=== PATIENT | male | born 1970 | race Caucasian/White ===

== ENCOUNTER 2020-11-26 12:47 | Inpatient (IN) | payer OTHER ==
[~2020-11-26] VITALS: Ht 185.4 cm; Wt 127.0 kg
--- NOTE | 2020-11-26 13:05 | NUR ---
at bedside for assessment
--- NOTE | 2020-11-26 13:30 | NUR ---
Patient states chest pain in 09/03
[2020-11-26 13:32] LABS: BASOPHILS % (AUTO) 0.4 % (0.0-2.0); EOSINOPHILS # (AUTO) 0.3 K/uL (0.0-0.7); EOSINOPHILS % (AUTO) 3.6 % (0.0-7.0); HEMATOCRIT 49.8 % (36.7-47.1); HEMOGLOBIN 16.8 g/dL (12.5-16.3); LYMPHOCYTES # (AUTO) 1.4 K/uL (20.0-40.0); LYMPHOCYTES % (AUTO) 19.7 % (20.5-51.5); MEAN CORPUSCULAR HEMOGLOBIN 32.9 uug (23.8-33.4); MEAN CORPUSCULAR HGB CONC 34 g/dL (32.5-36.3); MEAN CORPUSCULAR VOLUME 97.4 fL (73.0-96.2); MONOCYTES # (AUTO) 0.7 K/uL (2.0-10.0); MONOCYTES % (AUTO) 10.2 % (0.0-11.0); NEUTROPHILS # (AUTO) 4.8 K/uL (1.8-8.9); NEUTROPHILS % (AUTO) 66.1 % (38.5-71.5); PLATELET COUNT (AUTO) 244 K/uL (152-348); RED BLOOD CELL COUNT(AUTO) 5.11 MIL/uL (4.06-5.63); WHITE BLOOD COUNT (AUTO) 7.3 K/uL (3.6-10.2)
[2020-11-26 13:40] LABS: CREATININE 0.9 mg/dL (0.6-1.3); POTASSIUM 4.1 mmol/L (3.5-5.1)
[2020-11-26] MEDS ORDERED: NITROGLYCERIN OINT 1 GM PACKET TP ONE ×2 (13:45→14:00)
[2020-11-26] MEDS ORDERED: ASPIRIN 325 MG TABLET PO ONE (13:45)
[2020-11-26 13:53] LABS: BILIRUBIN,DIRECT 0.2 mg/dL (0.0-0.2); BILIRUBIN,TOTAL 1.1 mg/dL (0.2-1.0); TOTAL PROTEIN, SERUM 8.4 g/dL (6.4-8.2)
[2020-11-26] MEDS ORDERED: ASPIRIN 325 MG TABLET ONE (14:01)
--- NOTE | 2020-11-26 16:00 | NUR ---
Report given to Gregoria ROSAS of Tele unit
[2020-11-26] MEDS ORDERED: NITROGLYCERIN 0.4 MG/TAB BOTTLE SL PRN (17:45)
[2020-11-26] MEDS ORDERED: ZOLPIDEM 5 MG TABLET PO PRN (17:45)
[2020-11-26] MEDS ORDERED: ONDANSETRON 4 MG/2 ML VIAL IV PRN (17:45)
[2020-11-26] MEDS ORDERED: MORPHINE SULFATE 2 MG/1 ML DISP.SYRIN IV PRN (17:45)
[2020-11-26] MEDS ORDERED: MAGNESIUM HYDROXIDE 30 ML LIQUID UDC PO PRN (17:45)
[2020-11-26] MEDS ORDERED: HYDROCODONE/APAP 5-325MG TABLET PO PRN (17:45)
[2020-11-26] MEDS ORDERED: ACETAMINOPHEN 325 MG TABLET PO PRN (17:45)
--- NOTE | 2020-11-26 17:51 | NUR ---
Pt. admitted to Tele , under care of SENIOR STAFF [employer] EMPLOY[employer] Barry Belongs List completed and all belongs taken with patient
--- NOTE | 2020-11-26 18:28 | NUR ---
Received patient from ED via wheelchair. Admitted to Telemetry. No signs of distress. No complaint of pain. Belongings list done. Oriented to unit and room. Bed locked and in low position. Call light within reach. Will continue to monitor.
--- NOTE | 2020-11-26 19:15 | NUR ---
RECEIVED PT IN NO ACUTE DISTRESS. PT IN NO ACUTE DISTRESS. SAFETY AND COMFORT PROVIDED. PT REFUSED TO HAVE AN IV ACCESS. EDUCATE THE PATIENT OF HAVING IV ACCESS. PT STILL REFUSED. PT STATED, "I WANT TO MINIMIZE ANY HOLES." WILL CONTINUE TO MONITOR.
--- NOTE | 2020-11-26 20:07 | NUR ---
NOTIFY BRAKE LINING DRILLER REGARDING PT REFUSING TO HAVE IV ACCESS. PT IN NO ACUTE DISTRESS. WILL CONTINUE TO MONITOR.
[2020-11-26 20:29] VITALS: BP 140/100
[2020-11-26] MEDS ORDERED: CLONIDINE HCL 0.1 MG TABLET PO PRN (22:30)
[2020-11-27 01:05] VITALS: BP 138/87
[2020-11-27 05:40] VITALS: BP 128/89
--- NOTE | 2020-11-27 06:19 | NUR ---
PT IN NO ACUTE DISTRESS. PT ON SINUS RHYTHM WITH BUNDLE BRANCH BLOCK AT 75. PT REFUSED TO HAVE AN IV ACCESS. PT VITAL SIGNS WNL. SAFETY AND COMFORT PROVIDED. WILL CONTINUE TO ENDORSE TO INCOMING NURSE FOR CONTINUITY OF CARE.
[2020-11-27 06:43] LABS: BASOPHILS % (AUTO) 0.7 % (0.0-2.0); EOSINOPHILS # (AUTO) 0.3 K/uL (0.0-0.7); EOSINOPHILS % (AUTO) 4.6 % (0.0-7.0); LYMPHOCYTES # (AUTO) 1.9 K/uL (20.0-40.0); MEAN CORPUSCULAR HEMOGLOBIN 33.7 uug (23.8-33.4); MEAN CORPUSCULAR HGB CONC 35 g/dL (32.5-36.3); MEAN CORPUSCULAR VOLUME 97.5 fL (73.0-96.2); MONOCYTES # (AUTO) 0.8 K/uL (2.0-10.0); MONOCYTES % (AUTO) 11.8 % (0.0-11.0); NEUTROPHILS # (AUTO) 3.5 K/uL (1.8-8.9); NEUTROPHILS % (AUTO) 53.9 % (38.5-71.5); PLATELET COUNT (AUTO) 201 K/uL (152-348); RED BLOOD CELL COUNT(AUTO) 4.46 MIL/uL (4.06-5.63); WHITE BLOOD COUNT (AUTO) 6.5 K/uL (3.6-10.2)
[2020-11-27 07:09] LABS: CREATININE 0.9 mg/dL (0.6-1.3); MAGNESIUM 2.2 mg/dL (1.8-2.4); PHOSPHOROUS 3.1 mg/dL (2.5-4.9); POTASSIUM 3.8 mmol/L (3.5-5.1); TOTAL PROTEIN, SERUM 7.3 g/dL (6.4-8.2)
[2020-11-27 07:15] LABS: HEMATOCRIT 43.5 % (36.7-47.1)
[2020-11-27] MEDS ORDERED: ASPIRIN 81 MG TAB.CHEW PO SCH (09:00)
--- NOTE | 2020-11-27 09:00 | NUR ---
PATIENT WAS SEEN AND EXAMINED BY TYRON AND THE PLAN IS THAT PATIENT COULD BE DISCHARGED TODAY PENDING ECHO ORDERED
[2020-11-27 11:33] VITALS: BP 158/99
--- NOTE | 2020-11-27 12:00 | NUR ---
DR ARCOS HERE AND SEEN PATIENT AND STATED THAT PATIENT NEEDS CTA CHEST TODAY CALLED PIOTR SPOKE WITH HIM STATED WANTS THE PATIENT SOON POSSIBLE PATIENT AWARE.
--- NOTE | 2020-11-27 12:45 | NUR ---
CALL RECEIVED FROM LUIS MANUEL STATED THAT WE SHOULD SEND THE PATIENT SOON [facility] CALLED TWO AMBULANCES AND THE SOONEST IS AT 1400 NOTIFIED LUIS MANUEL AND ALSO DR ARCOS AWARE STATED PATIENT DID NOT NEED [facility].CONSCENT OBTAINED AND DOCUMENTED.
--- NOTE | 2020-11-27 13:20 | NUR ---
PATIENT HAS NO IV SITE INSERTED GAUGE 18 TO HIS RIGHT ANTECUBITAL WITH ONE ATTEMPT AND SECURED PATIENT IS BEING PREPPED FOR CTA CHEST ORDERED.
--- NOTE | 2020-11-27 13:45 | NUR ---
PATIENT PICKED UP BY [facility] FOR CT HEART ORDERED IN SATISFACTORY CONDITION.
--- NOTE | 2020-11-27 15:36 | NUR ---
PATIENT RETURNED BACK TO HIS ROOM WITH NO RESULTS AT THIS TIME.
[2020-11-27 16:00] VITALS: BP 139/99
--- NOTE | 2020-11-27 16:15 | NUR ---
PATIENT DISCHARGED PICKED UP BY HER SON IN LAW EMILIO IN SATISFACTORY CONDITION WITH ALL HER DISCHARGE INSTRUCTIONS AND PERSONAL BELONGINGS AND PATIENT INSTRUCTED TO CALL HER PRIMARY DOCTOR AND SALES DEVELOPMENT EXECUTIVE FOR A FOLLOW UP APPOINTMENT WITHIN THE NEXT ONE WEEK AND SHE [id number] UNDERSTANDING. Addendum: 11/27/20 at 1734 by KAROLINE ANNE RN ERROR WRONG PATIENT
--- NOTE | 2020-11-27 17:00 | NUR ---
CALL RECEIVED FROM TYRON STATED THAT PATIENT WILL BE DISCHARGED TODAY STATED THAT HE SPOKE WITH DR BAILEY AND THAT PATIENT IS GOOD TO GO STATED HE WILL WORK ON HIS DISCHARGE SOON POSSIBLE
--- NOTE | 2020-11-27 18:00 | NUR ---
DR ARCOS HERE AND SAW PATIENT AND EXPLAINED TO HIM HIS CTA CHEST AND CLEARED PATIENT FOR DISCHARGE.
--- NOTE | 2020-11-27 18:30 | NUR ---
PATIENT DISCHARGED PICKED UP BY HIS PREETI IN SATISFACTORY CONDITION WITH DISCHARGE INSTRUCTIONS AND ALL THE PERSONAL BELONGINGS ABDOULAYEANN REMOVED CD OF ALL HIS TESTS GIVEN NOT IN DISTRESS AT THIS TIME.
== END 2020-11-27 18:30 | disposition home or self-care (01) | DRG 206 ==
LOC: ER 12:47 → TELE3 17:29
PROVIDERS: ADMIT Nurse Practitioner Acute Care; ATTEND Nurse Practitioner Acute Care
DX: M94.0 Chondrocostal junction syndrome [Tietze] (principal); D68.69 Other thrombophilia; E66.9 Obesity, unspecified; Z68.36 Body mass index [BMI] 36.0-36.9, adult; Z74.09 Other reduced mobility; R73.9 Hyperglycemia, unspecified; Z20.822 Contact with and (suspected) exposure to COVID-19; I45.10 Unspecified right bundle-branch block; Z87.891 Personal history of nicotine dependence
CPT/HCPCS: 36415; 70030-TC; 71045; 83735; 84100; 85025; 93005; 93307; A4663; G0378

== ENCOUNTER 2022-12-23 08:51 | Inpatient (IN) | payer OTHER ==
[~2022-12-23] VITALS: Ht 167.6 cm; Wt 104.3 kg
[2022-12-23] MEDS ORDERED: AZITHROMYCIN IV 500 MG in IV DEXTROSE 5% 250 ML IV ONE (09:00)
[2022-12-23] MEDS ORDERED: CEFTRIAXONE 1 G in IV DEXTROSE 5% 50 ML IV ONE (09:00)
[2022-12-23] MEDS ORDERED: CEFTRIAXONE /D5W 50ML IVPB **ER PYXIS IV ONE (09:54)
[2022-12-23] MEDS ORDERED: AZITHROMYCIN 500MG/ D5W 250ML IVPB **ER PYXIS ONLY IV ONE (09:57)
[2022-12-23 10:01] LABS: HEMATOCRIT 41.2 % (36.7-47.1); MEAN CORPUSCULAR HEMOGLOBIN 29.6 uug (23.8-33.4); MEAN CORPUSCULAR VOLUME 90.7 fL (73.0-96.2); PLATELET COUNT (AUTO) 431 K/uL (152-348)
[2022-12-23 10:14] LABS: CARBON DIOXIDE 29 mmol/L (21-32); CHLORIDE 98 mmol/L (98-107); CREATININE 0.8 mg/dL (0.6-1.3); GLUCOSE 121 mg/dL (74-106); POTASSIUM 3.8 mmol/L (3.5-5.1); UREA NITROGEN, BLOOD 10 mg/dL (7-18)
[2022-12-23 10:26] LABS: ALANINE AMINOTRANSFERASE 70 U/L (16-63); ALKALINE PHOSPHATASE 72 U/L (50-136); ASPARTATE AMINOTRANSFERASE 44 U/L (15-37); BILIRUBIN,DIRECT 0.2 mg/dL (0.0-0.2); BILIRUBIN,TOTAL 0.5 mg/dL (0.2-1.0); TOTAL PROTEIN, SERUM 8.4 g/dL (6.4-8.2)
[2022-12-23] MEDS ORDERED: ACETAMINOPHEN 325 MG TABLET ONE (11:08)
--- NOTE | 2022-12-23 11:13 | NUR ---
Pt c/o -12/02 MD NATE informed. Administered tylenol as ordered.
[2022-12-23] MEDS ORDERED: ACETAMINOPHEN 325 MG TABLET PO ONE (11:15)
[2022-12-23 11:47] LABS: ABG BASE EXCESS 4.1 mmol/L; ABG HCO3 27.9 mmol/L; ABG PCO2 38.9 mmHg (35.0-45.0); ABG PH 7.473 (7.350-7.450); ABG PO2 82.3 mmHg (75.0-100.0); ABG SITE RIGHT BRACHIAL; ABG TOTAL HEMOGLOBIN 13.9 G/dL (13.5-18.0); COHb 1.4 % (0.5-1.5); MetHb 0.2 % (0.0-1.5); VENT MODE Nasal Cannula
--- NOTE | 2022-12-23 12:05 | NUR ---
Pt breathing easier, no distress noted.
--- NOTE | 2022-12-23 13:05 | NUR ---
Gave report to nurseBean.
--- NOTE | 2022-12-23 13:15 | NUR ---
RECEIVED PATIENT FROM ED TO ROOM 304 WITH DX OF PNEUMONIA UNDER TELEMETRY PLACED INTO BED MADE COMFORTABLE PATIENT IA ALERT AND ORIENTED ON O2 AT 5L/M WITH SAT AT 947 PERCENT.PATIENT ORIENTED TO ROOM AND FACILITY PROTOCOL IS PRESENT IN THE ROOM SENT A MESSAGE TO DR SARAH SOMERS PATIENT IS HERE WITH DIET ORDER AND NOTED.
[2022-12-23 14:00] VITALS: BP 139/80
[2022-12-23] MEDS ORDERED: MAGNESIUM HYDROXIDE 30 ML LIQUID UDC PO PRN (17:00)
[2022-12-23] MEDS ORDERED: ALBUTEROL SULFATE 2.5 MG/ 0.5 ML NEBU NEB PRN (17:00)
[2022-12-23] MEDS ORDERED: ONDANSETRON 4 MG/2 ML VIAL IV PRN (17:00)
[2022-12-23] MEDS ORDERED: CEFTRIAXONE 1 G in IV DEXTROSE 5% 50 ML IV SCH (17:00)
[2022-12-23] MEDS ORDERED: MORPHINE SULFATE 2 MG/1 ML DISP.SYRIN IV PRN (17:00)
[2022-12-23] MEDS ORDERED: GUAIFENESIN/CODEINE 5 ML LIQUID UDC PO PRN (17:00)
--- NOTE | 2022-12-23 17:43 | NUR ---
SITTING UP ON THE CHAIR WITH O2 NOTED SOME DRY COUGHING OFFERED COUGH MEDICATION AND HE STATED THAT HE DID NOT NEED IT NOW.WILL CONTINUE TO OBSERVE.
--- NOTE | 2022-12-23 19:30 | NUR ---
Received patient lying in bed. at bedside. AAOx4. In no acute distress. Denies any pain. Some SOB but tolerable. On O2 at 5LPM via NC in place. O2 sat at 94% at this time. IV site on right intact and patent. SR with BBB on tele with HR of 93/min. Needs assessed and attended to. Safety measure initiated and call light within reached. Addendum: 12/23/22 at 2039 by ALDO MORIN RN IV site on right AC intact and patent.
[2022-12-23] MEDS: ENOXAPARIN SODIUM 40 MG/0.4 ML DISP.SYRIN SQ SCH (20:14)
[2022-12-23 20:19] VITALS: BP 127/83
[2022-12-24 00:05] VITALS: BP 133/84
[2022-12-24 04:36] VITALS: BP 133/86
--- NOTE | 2022-12-24 05:41 | NUR ---
Slept well during the night. No complain of pain or SOB. On O2 at 5LPM via NC in place. SR with BBB on tele with HR of 89/min. Needs attended to and met. Safety measure maintained and call light within reached.
[2022-12-24] MEDS: PANTOPRAZOLE SODIUM 40 MG TABLET.DR PO SCH (06:03)
--- NOTE | 2022-12-24 07:30 | NUR ---
RECEIVED PATIENT IN BED AWAKE ALERT AND ORIENTED REMAIN ON O2 AT 5L/M BY NASAL CANULA WITH SOME SOBE BUT SATS AT 94 PERCENT OCCASSIONAL DRY COUGH DENIES DISCOMFORTS CALL LIGHTS AND PERSONAL BELONGINGS ARE WITHIN EASY REACH AT THIS TIME WILL CONTINUE TO OBSERVE.
[2022-12-24 07:47] LABS: HEMATOCRIT 38.9 % (36.7-47.1); MEAN CORPUSCULAR HEMOGLOBIN 29.6 uug (23.8-33.4); PLATELET COUNT (AUTO) 386 K/uL (152-348)
[2022-12-24 08:16] LABS: BILIRUBIN,TOTAL 0.3 mg/dL (0.2-1.0); CREATININE 0.7 mg/dL (0.6-1.3); PHOSPHOROUS 4.3 mg/dL (2.5-4.9); POTASSIUM 4.6 mmol/L (3.5-5.1); TOTAL PROTEIN, SERUM 7.7 g/dL (6.4-8.2)
[2022-12-24] MEDS: CEFTRIAXONE 2 G in IV DEXTROSE 5% 100 ML IV SCH (08:44)
[2022-12-24 09:38] LABS: THYROID STIMULATING HORMONE 0.632 mIU/mL (0.358-3.740)
--- NOTE | 2022-12-24 10:11 | NUR ---
MID LINE INSERTED TO HIS LEFT UPPER ARM GAUGE 18 AND ATB CONTINUED ORDERED.
[2022-12-24] MEDS: methylPREDNISolone SOD SUCC 125 MG/2 ML VIAL IV SCH ×3 (10:13→21:00)
[2022-12-24] MEDS: AZITHROMYCIN IV 500 MG in IV DEXTROSE 5% 250 ML IV SCH (10:13)
--- NOTE | 2022-12-24 11:00 | NUR ---
PATIENT SEEN BY SHAUNA ROMERO NP AND DR AHAS WITH NEW ORDERS AND NOTED.
[2022-12-24] MEDS: IPRATROPIUM BROMIDE 0.5 MG/2.5 ML NEBU NEB SCH ×3 (11:03→19:42)
[2022-12-24] MEDS: ALBUTEROL SULFATE 2.5 MG/3 ML NEBU NEB SCH ×3 (11:03→19:42)
--- NOTE | 2022-12-24 11:57 | NUR ---
MRSA AND RESPIRATORY ANTIGEN SWABS OBTAINED ORDERED AND SENT TO THE LAB.
[2022-12-24 12:00] VITALS: BP 123/82
--- NOTE | 2022-12-24 13:41 | NUR ---
CT CHEST DONE ORDERED AND BACK TO HIS ROOM.
--- NOTE | 2022-12-24 13:58 | NUR ---
PATIENT SEEN AND EXAMINED BY EDMUNDO NICOLAS GUEST RELATIONS AGENT WITH NEW ORDERS AND NOTED
[2022-12-24 16:00] VITALS: BP 141/96
--- NOTE | 2022-12-24 18:00 | NUR ---
RESTING WITH MIDLINE INTACT TOLERATED HIS ATB ORDERED WITH NO ADVERSE OR ALLERGIC REACTIONS AT THIS TIME.
--- NOTE | 2022-12-24 19:40 | NUR ---
Received patient sitting on the chair. present. AAOx4. In no acute distress. Denies any pain or SOB. O2 at 5LPM via NC in place. SR with BBB on tele with HR of 97/min. Midline on left upper arm intact and patent. Safety measure initiated and call light within reached.
[2022-12-24 20:00] VITALS: BP 140/92
[2022-12-24] MEDS: ENOXAPARIN SODIUM 40 MG/0.4 ML DISP.SYRIN SQ SCH (20:56)
[2022-12-25] VITALS: BP 145/93
--- NOTE | 2022-12-25 05:42 | NUR ---
Slept well during the night. No complain of pain or SOB. Remains on O2 at 5LPM via NC in place. SR with BBB on tele with HR of 90/min. Occasional dry cough, unable to expectorate any phlegm. Refused to have VS taken this AM. Needs attended to and met. Safety measure maintained and call light within reached.
[2022-12-25] MEDS: PANTOPRAZOLE SODIUM 40 MG TABLET.DR PO SCH (06:06)
[2022-12-25] MEDS: methylPREDNISolone SOD SUCC 125 MG/2 ML VIAL IV SCH (06:06)
[2022-12-25 07:16] LABS: HEMATOCRIT 38.6 % (36.7-47.1); MEAN CORPUSCULAR HEMOGLOBIN 29.5 uug (23.8-33.4); MEAN CORPUSCULAR VOLUME 90.3 fL (73.0-96.2); PLATELET COUNT (AUTO) 412 K/uL (152-348)
[2022-12-25 07:35] LABS: ALANINE AMINOTRANSFERASE 67 U/L (16-63); ALKALINE PHOSPHATASE 60 U/L (50-136); ASPARTATE AMINOTRANSFERASE 37 U/L (15-37); BILIRUBIN,DIRECT 0.1 mg/dL (0.0-0.2); BILIRUBIN,TOTAL 0.2 mg/dL (0.2-1.0); CARBON DIOXIDE 32 mmol/L (21-32); CHLORIDE 105 mmol/L (98-107); CREATININE 0.6 mg/dL (0.6-1.3); GLUCOSE 149 mg/dL (74-106); MAGNESIUM 2.2 mg/dL (1.8-2.4); PHOSPHOROUS 3.8 mg/dL (2.5-4.9); POTASSIUM 4.6 mmol/L (3.5-5.1); TOTAL PROTEIN, SERUM 7.8 g/dL (6.4-8.2); UREA NITROGEN, BLOOD 14 mg/dL (7-18)
[2022-12-25] MEDS: IPRATROPIUM BROMIDE 0.5 MG/2.5 ML NEBU NEB SCH ×4 (07:35→20:17)
[2022-12-25] MEDS: ALBUTEROL SULFATE 2.5 MG/3 ML NEBU NEB SCH ×4 (07:35→20:17)
[2022-12-25 08:05] VITALS: BP 125/73
--- NOTE | 2022-12-25 08:11 | NUR ---
Telemetry Nurses notes: Patient awake, sitting up on the chair in his room, A/O x 4, denies pain or discomforts,No complain of pain or SOB. Remains on O2 at 5LPM via NC in place, dry cough, unable to expectorate any phlegm Safety measure maintained and call light within reached.
[2022-12-25 08:49] LABS: ABG BASE EXCESS 2.4 mmol/L; ABG HCO3 26.3 mmol/L; ABG PCO2 38.4 mmHg (35.0-45.0); ABG PH 7.454 (7.350-7.450); ABG PO2 46.2 mmHg (75.0-100.0); ABG SITE LEFT RADIAL; ABG TOTAL HEMOGLOBIN 14.2 G/dL (13.5-18.0); COHb 0.9 % (0.5-1.5); MetHb 0.1 % (0.0-1.5); O2Hb 83.8 % (94.0-97.0)
[2022-12-25] MEDS: CEFTRIAXONE 2 G in IV DEXTROSE 5% 100 ML IV SCH (08:51)
[2022-12-25] MEDS: AZITHROMYCIN IV 500 MG in IV DEXTROSE 5% 250 ML IV SCH (09:38)
[2022-12-25] MEDS: ACETAMINOPHEN 325 MG TABLET PO PRN (09:45)
[2022-12-25 12:00] VITALS: BP 111/72
[2022-12-25] MEDS: methylPREDNISolone SOD SUCC 40 MG/ML VIAL IV SCH ×2 (14:27→21:15)
[2022-12-25 16:00] VITALS: BP 137/87
--- NOTE | 2022-12-25 18:16 | NUR ---
Telemetry Nurses noted: Patient cooperative through-out the day, patient on HRT monitor, SR BBB, no S/S of distress, patient working on his computer, denies pain or discomforts.
--- NOTE | 2022-12-25 19:50 | NUR ---
Received patient sitting on the chair. present. AAOx4. In no acute distress. Denies any pain or SOB. O2 at 5LPM via NC in place. SR with BBB on tele with HR of 91/min. Midline on left upper arm intact and patent. Needs assessed and attended to. Safety measure initiated and call light within reached.
[2022-12-25 20:00] VITALS: BP 130/77
[2022-12-25] MEDS: ENOXAPARIN SODIUM 40 MG/0.4 ML DISP.SYRIN SQ SCH (21:15)
[2022-12-26] VITALS: BP 134/78
--- NOTE | 2022-12-26 05:44 | NUR ---
Slept well during the night. No complain of pain or SOB. O2 now at 3LPM via NC in place. O2 sat at 95%. SR with BBB on tele with HR of 84/min. Midline on left upper arm remains intact and patent. Needs attended to and met. Safety measure maintained and call light within reached.
[2022-12-26] MEDS: PANTOPRAZOLE SODIUM 40 MG TABLET.DR PO SCH (06:04)
[2022-12-26] MEDS: methylPREDNISolone SOD SUCC 40 MG/ML VIAL IV SCH ×3 (06:04→21:02)
[2022-12-26 06:57] LABS: HEMATOCRIT 38.9 % (36.7-47.1); MEAN CORPUSCULAR VOLUME 90.7 fL (73.0-96.2); PLATELET COUNT (AUTO) 457 K/uL (152-348)
[2022-12-26 06:59] LABS: CREATININE 0.7 mg/dL (0.6-1.3); POTASSIUM 4.5 mmol/L (3.5-5.1)
[2022-12-26] MEDS: ALBUTEROL SULFATE 2.5 MG/3 ML NEBU NEB SCH ×4 (07:45→19:42)
[2022-12-26] MEDS: IPRATROPIUM BROMIDE 0.5 MG/2.5 ML NEBU NEB SCH ×4 (07:45→19:42)
--- NOTE | 2022-12-26 08:00 | NUR ---
RECEIVED PATIENT SITTING UP ON A CHAIR ALERT AND ORIENTED X3 DENIES CHEST PAIN OR SOB, ON 3L NC. SATURATING 93-94%. TITRATED TO 2L AND CLOSELY MONITORED. SR WITH BB ON MONITOR. CONTINUE WITH IV ANTIBIOTIC TX NO ADVERSE REACTION NOTED. MIDLINE INTACT AND PATENT LEFT UPPER ARM
[2022-12-26] MEDS ORDERED: FUROSEMIDE 20 MG/2 ML VIAL IV ONE (08:15)
[2022-12-26] MEDS: CEFTRIAXONE 2 G in IV DEXTROSE 5% 100 ML IV SCH (08:49)
--- NOTE | 2022-12-26 10:00 | NUR ---
PATIENT TOLERATING 2L NC SATURATING 95%, BRP WITH 3X LOOSE STOOL HOSPITALIST MADE AWARE WITH ORDER TO START FLORANEX, NO C-DIFF STUDY NEEDED
[2022-12-26] MEDS: AZITHROMYCIN IV 500 MG in IV DEXTROSE 5% 250 ML IV SCH (10:09)
[2022-12-26] MEDS: ACETAMINOPHEN 325 MG TABLET PO PRN (10:26)
[2022-12-26 11:30] VITALS: BP 122/75
--- NOTE | 2022-12-26 13:00 | NUR ---
O2 SATS ON THE 95% AT 2L. O2 TITRATED TO 1L AND OBSERVED
[2022-12-26] MEDS: ACIDOPHILUS/BULGARICUS CHEW TAB PO SCH ×2 (13:18→21:02)
--- NOTE | 2022-12-26 13:40 | NUR ---
SEEN BY PT FOR EVAL SEE NOTES
[2022-12-26 15:50] VITALS: BP 133/76
--- NOTE | 2022-12-26 18:11 | NUR ---
SEEN BY DR HAAS FOR PULMONARY FOLLOW-UP SEE NOTES. PATIENT CONTINUE TO TOLERATE RA WITHOUT SS OF DISTRESS. MEDSURG STATUS ORDERED
[2022-12-26 20:05] VITALS: BP 136/82
[2022-12-26] MEDS: ENOXAPARIN SODIUM 40 MG/0.4 ML DISP.SYRIN SQ SCH (21:03)
--- NOTE | 2022-12-26 23:51 | NUR ---
Received patient sitting in the chair. AAOX4. Denies any pain or SOB. O2 sat at 94% on RA. Midline on left upper arm intact and patent. SR with BBB on tele HR 84/min. Safety measure initiated and call light within reached. Addendum: 12/26/22 at 2355 by ALDO MORIN RN Notes shonna 1929 Addendum: 12/26/22 at 2358 by ALDO MORIN RN Patient no longer on tele monitor.
[2022-12-27] MEDS: ACIDOPHILUS/BULGARICUS CHEW TAB PO SCH (05:25)
[2022-12-27] MEDS: PANTOPRAZOLE SODIUM 40 MG TABLET.DR PO SCH (06:02)
[2022-12-27 06:18] VITALS: BP 141/92
--- NOTE | 2022-12-27 06:20 | NUR ---
Slept through out the night with no complain of pain or SOB.
[2022-12-27 06:34] LABS: HEMATOCRIT 36.6 % (36.7-47.1); MEAN CORPUSCULAR HEMOGLOBIN 29.8 uug (23.8-33.4); PLATELET COUNT (AUTO) 404 K/uL (152-348)
[2022-12-27 07:05] LABS: BILIRUBIN,TOTAL 0.2 mg/dL (0.2-1.0); CREATININE 0.7 mg/dL (0.6-1.3); POTASSIUM 4.1 mmol/L (3.5-5.1); TOTAL PROTEIN, SERUM 7.1 g/dL (6.4-8.2)
--- NOTE | 2022-12-27 07:20 | NUR ---
RECEIVED PATIENT SITTING UP ON A CHAIR ALERT AND ORIENTED X3 DENIES CHEST PAIN OR SOB,ON RA O2 SAT IS 94. CONTINUE WITH IV ANTIBIOTIC TX NO ADVERSE REACTION NOTED. MIDLINE INTACT AND PATENT LEFT UPPER ARM CALL LIGHT WITH IN REACH
[2022-12-27] MEDS: ALBUTEROL SULFATE 2.5 MG/3 ML NEBU NEB SCH ×2 (07:43→11:54)
[2022-12-27] MEDS: IPRATROPIUM BROMIDE 0.5 MG/2.5 ML NEBU NEB SCH ×2 (07:43→11:54)
[2022-12-27] MEDS: CEFTRIAXONE 2 G in IV DEXTROSE 5% 100 ML IV SCH (08:31)
[2022-12-27] MEDS: methylPREDNISolone SOD SUCC 40 MG/ML VIAL IV SCH (08:31)
[2022-12-27] MEDS: AZITHROMYCIN IV 500 MG in IV DEXTROSE 5% 250 ML IV SCH (09:20)
[2022-12-27 11:46] VITALS: BP 140/89
[2022-12-27] MEDS ORDERED: METH4TAB3 PO (12:42)
[2022-12-27] MEDS ORDERED: ACID1TAB4 PO (12:42)
[2022-12-27] MEDS ORDERED: ALBU2.5V7 NEB (12:42)
[2022-12-27] MEDS ORDERED: PANT40TA49 PO (12:42)
[2022-12-27] MEDS ORDERED: IPRA0.2S6 NEB (12:42)
[2022-12-27] MEDS ORDERED: ALBU18HF2 INH (12:42)
[2022-12-27] MEDS ORDERED: ALBU2.5V13 NEB (12:42)
--- NOTE | 2022-12-27 13:36 | NUR ---
dc orders received noted and carried out,dc midline per md orders,dc instruction and education given to the pt and his ,pt said he will follow up with his pcp ,pt left the facility via private car in stable condition
[2022-12-27] MEDS ORDERED: GLUCERNA SHAKE 237 ML CAN PO SCH (17:00)
== END 2022-12-27 13:40 | disposition home or self-care (01) | DRG 193 ==
LOC: ER 08:51 → TELE3 13:13 → MEDSURG3 12-26 11:13
PROVIDERS: ADMIT Internal Medicine; ATTEND Internal Medicine
PROC: 05HF33Z Insertion of Infusion Device into Left Cephalic Vein, Percutaneous Approach (ICD-10-PCS; principal; 2022-12-24)
DX: J15.9 Unspecified bacterial pneumonia (principal); J96.01 Acute respiratory failure with hypoxia; J45.901 Unspecified asthma with (acute) exacerbation; E44.0 Moderate protein-calorie malnutrition; Z20.822 Contact with and (suspected) exposure to COVID-19; E66.9 Obesity, unspecified; Z68.37 Body mass index [BMI] 37.0-37.9, adult; Z87.891 Personal history of nicotine dependence; I45.10 Unspecified right bundle-branch block; E88.09 Other disorders of plasma-protein metabolism, not elsewhere classified; R74.8 Abnormal levels of other serum enzymes; D64.9 Anemia, unspecified; Z80.9 Family history of malignant neoplasm, unspecified; Z82.5 Family history of asthma and other chronic lower respiratory diseases; N28.1 Cyst of kidney, acquired; I51.7 Cardiomegaly
CPT/HCPCS: 36415; 36600; 71045; 71250; 76770; 82785; 82803; 83605; 83735; 84100; 84443; 84484; 85025; 86140; 86803; 87040; 87806; 93005; 93307; 94640; 94760; A4663; G0378; J0456; J0696; J1650; J1940; J2920; J2930; J3590; J7050